=== PATIENT | female | born 1990 | race Two or more races ===

== ENCOUNTER 2024-07-17 17:29 | Emergency (ER) | payer OTHER ==
[~2024-07-17] VITALS: Ht 162.6 cm; Wt 84.7 kg
[2024-07-17 20:06] VITALS: BP 137/81; PULSE 78; RESP 20; TEMP 98.1; O2SAT 97
[2024-07-17] MEDS: KETOROLAC TROMETH 60MG/2ML VIAL IM ONE (20:07)
== END 2024-07-17 20:29 | disposition home or self-care (01) ==
LOC: ER 17:29
DX: T50.905A Adverse effect of unspecified drugs, medicaments and biological substances, initial encounter (principal); X58.XXXA Exposure to other specified factors, initial encounter; Y93.89 Activity, other specified; Y92.89 Other specified places as the place of occurrence of the external cause; Y99.8 Other external cause status
CPT/HCPCS: 70450; 96372; 99285; J1885